=== PATIENT | female | born 1975 | race American Indian/Alaskan Native ===

== ENCOUNTER 2017-03-28 07:46 | Day surgery (SDC) | payer BC ==
--- NOTE | 2017-03-27 21:56 | History and Physical Report ---
History of Present Illness Date of examination: 03/24/17 History of present illness: Patient has been reassessed/reevaluated. H&P has been reviewed. No interval changes. 42 YOBF with a Mirena IUD in place greater than 5 year. IUD string not visible through cervix, In office hysteroscopic removel failed to discomfort and poor visualizatlation. Pateint present reji hysterospic reoval under anesthesia Vital Signs: Patient Profile: 42 Years Old Female Height: 60 inches (152.40 cm) Weight: 315 pounds (143.18 kg) BMI: 61.51 BSA: 2.27 Past History : 1 Term Births: 1 Premature Births: 0 Living Children: 1 Para: 1 Mult. Births: 0 Prev : 0 Prev. attempt? 0 Aborta: 0 Elect. Ab: 0 Spont. 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 of genital herpes: no Partner hx. of genital herpes: no Hx of STD: Trichomonas Other: hpv Current Allergies (reviewed today): * SULFA (Critical) Past Medical History: Diabetes Sleep Apnea Past Surgical History: negative Family History Summary: Other family member - Has No Family History of Ovarvian Cancer - Entered On: 02/2017 Other family member - Has No Family History of Colon Cancer - Entered On: 2016 Other family member - Has Family History of Diabetes - Entered On: 03/24/2017 Other family member - Has Family History Breast Cancer - Entered On: 03/24/2017 Social History: : Patient is single occ etoh, no tobacco no drugs DFACS Smoking History: Patient has never smoked. Risk Factors: Smoked Tobacco Use: Never smoker Smokeless Tobacco Use: Never Passive smoke exposure: no Drug use: no HIV high-risk behavior: no Alcohol use: yes Type: occ Exercise: no Seatbelt use: 100 % Review of Systems General Denies fever, chills, sweats, anorexia, fatigue, weakness, malaise, weight loss and sleep disorder. Denies vaginal discharge, incontinence, dysuria, hematuria, urinary frequency, amenorrhea, menorrhagia, abnormal vaginal bleeding, pelvic pain, genital sores, decreased libido, painful periods, painful sex, urinary urgency, hot flashes, vaginal dryness, vaginal itching and vaginal odor. CV Denies chest pains, palpitations, syncope, dyspnea on exertion, orthopnea, PND and peripheral edema. Resp Denies cough, dyspnea at rest, excessive sputum, hemoptysis, wheezing and pleurisy. GI Denies nausea, vomiting, diarrhea, constipation, change in bowel habits, abdominal pain, melena, hematochezia, jaundice, gas/bloating, indigestion/ heartburn, dysphagia and odynophagia. Breast Denies left breast lump, right breast lump, nipple discharge, bloody discharge from nipple, breast pain, abnormal mammogram and breast enlargement. Psych Denies depression, anxiety, irritability and mood swings. Past History Past Medical History: other (see HPI) Past Surgical History: Other (see HPI) Social history: other (see HPI) Family history: other (see HPI) Medications and Allergies Allergies Allergy/AdvReac Type Severity Reaction Status Date / Time Sulfa (Sulfonamide Allergy Itching Verified 03/18/17 10:10 Antibiotics) Home Medications Medication Instructions Recorded Confirmed Last Taken Type Canagliflozin/Metformin HCl 1 each PO DAILY 03/18/17 03/18/17 Unknown History [Invokamet Xr 50-1,000 mg Tab] Dulaglutide [Trulicity] 1.5 mg SQ 1XW 03/18/17 03/18/17 Unknown History Review of Systems Constitutional: other (see HPI) Exam - Physical Exam Narrative exam: HEENT: normocephalic, no lesions or deformities Neck/Thyroid: supple, thyroid normal Skin no ulcers, xanthomas Chest: respiratory effort normal, clear to auscultation Breasts: skin/areolae normal, no masses, no nipple discharge, no erythema/warmth /tenderness, and axillae normal. 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 No evidence of cystocele or rectocele. Cervix: normal appearance, no lesions, no discharge, string not seen Uterus: unable to palpate due to obesity Adnexae: unable to palpate due to obesity Rectovaginal: exam defered Assessment and Plan - Patient Problems (1) IUD surveillance Current Visit: Yes Status: Acute (2) IUD threads lost Current Visit: Yes Status: Acute Qualifiers: Encounter type: subsequent encounter Qualified Code(s): T83.32XD - Displacement of intrauterine contraceptive device, subsequent encounter Plan to address problem: Hysteroscopic removal. Discussed risk of surgery including infection, bleeding and risk of perforating her uterus. Questions answered. Patient understands and desires to proceed (3) Diabetes Current Visit: Yes Status: Acute Qualifiers: Diabetes mellitus type: type 2 Diabetes mellitus complication status: without complication (4) Sleep apnea Current Visit: Yes Status: Acute (5) BMI 60.0-69.9, adult Current Visit: Yes Status: Acute
[~2017-03-28 07:46] MED LIST: NACL 0.9% IR ONE
[2017-03-28] MEDS ORDERED: NACL 0.9% 1000 ML 1,000 ML IV SCH (09:00)
--- NOTE | 2017-03-28 09:29 | Anesthesia Day of Surgery ---
Anesthesia Day of Surgery - Day of Surgery Patient Examined: Yes Patient H&P Reviewed: Yes Patient is NPO: Yes
--- NOTE | 2017-03-28 09:29 | Anesthesia Consultation ---
Anesthesia Consult and Med Hx Date of service: 03/28/17 - Airway Anesthetic Teeth Evaluation: Good ROM Head & Neck: Adequate Mental/Hyoid Distance: Adequate Mallampati Class: Class II Intubation Access Assessment: Probably Good - Pulmonary Exam CTA: Yes - Cardiac Exam Cardiac Exam: RRR - Pre-Operative Health Status ASA Pre-Surgery Classification: ASA3 Proposed Anesthetic Plan: General - Pulmonary Hx Sleep Apnea: Yes (doesnt use cpap) - Cardiovascular System Hx Hypertension: No - Central Nervous System Hx Psychiatric Problems: No - Endocrine Hx Insulin Dependent Diabetes: Yes - Other Systems Hx Alcohol Use: No (OCCASIONALLY) Hx Substance Use: No Hx Cancer: No Hx Obesity: Yes
[2017-03-28] MEDS ORDERED: PERCOCET 5/325 PO PRN (10:00)
[2017-03-28] MEDS ORDERED: PEPCID PO NR (10:00)
[2017-03-28] MEDS ORDERED: VERSED IV NR (10:00)
[2017-03-28] MEDS ORDERED: ZOFRAN IV PRN (10:00)
[2017-03-28] MEDS ORDERED: MORPHINE IV PRN (10:00)
[2017-03-28] MEDS ORDERED: TORADOL IV PRN (10:00)
[2017-03-28] MEDS ORDERED: XYLOCAINE MPF 2% ONE (10:05)
[2017-03-28] MEDS ORDERED: DIPRIVAN 10 MG/ML IV ONE ×2 (10:05→10:21)
[2017-03-28] MEDS ORDERED: DECADRON ONE (11:14)
[2017-03-28] MEDS ORDERED: ZOFRAN ONE (11:14)
[2017-03-28] MEDS ORDERED: TORADOL ONE (11:14)
--- NOTE | 2017-03-28 11:33 | Operative Report ---
Operative Report Operative Report: Date of procedure: 03/28/2017 Pre-operative diagnosis: Retained IUD Post-operative diagnosis: Same Procedure name(s): Hysteroscopic removal of Mirena IUD Surgeon: Samuel Naqvi MD Process Trainer: [] Anesthesia: General EBL: Minimal Complications: None Findings: Mirena IUD with strings folded into the uterus Specimen(s): Mirena IUD Procedure: Patient was brought to operating room. Where general anesthesia was induced on difficulty. She was placed in the dorsal lithotomy position. Prepped and draped in usual sterile manner. Urinary bladder was emptied with a red rubber catheter. Speculum was placed in the vagina. Tenaculum was placed at 12:00. The cervix was dilated progressively to operative hysteroscope could be placed without any difficulty. The hysteroscope was placed through the cervical os without any complications with the findings noted above. The IUD with the its strings were seen. The strings were grasped with a grasper and poor through her cervical os without difficulty. Instruments are removed. The patient tolerated the procedure well and was awakened in the operating room. Accompanied to the recovery room in good condition
--- NOTE | 2017-03-28 11:38 | Short Stay Summary ---
Short Stay Documentation Date of service: 03/28/17 - History Principal diagnosis: retained placenta H&P: dictated Past Medical History: other (see HPI) Past Surgical History: Other (see HPI) Social history: other (see HPI) - Allergies and Medications Current Medications: Allergies Sulfa (Sulfonamide Antibiotics) Allergy (Verified 03/18/17 10:10) Itching Home Medications Medication Instructions Recorded Confirmed Last Taken Type Canagliflozin/Metformin HCl 1 each PO DAILY 03/18/17 03/28/17 03/27/17 History [Invokamet Xr 50-1,000 mg Tab] Dulaglutide [Trulicity] 1.5 mg SQ 1XW 03/18/17 03/28/17 03/25/17 History Active Medications Famotidine (Pepcid) 20 mg PO PREOP NR Stop: 03/28/17 21:00 Last Admin: 03/28/17 09:56 Dose: 20 mg Sodium Chloride (Nacl 0.9% 1000 Ml) 1,000 mls @ 125 mls/hr IV DIRECT ALTAF Last Admin: 03/28/17 09:15 Dose: 125 mls/hr Ketorolac Tromethamine (Toradol) 30 mg IV ONCE PRN PRN Reason: Pain, Moderate (4-6) Stop: 03/28/17 21:00 Midazolam HCl (Versed) 2 mg IV PREOP NR Stop: 03/28/17 23:59 Last Admin: 03/28/17 09:56 Dose: 2 mg Morphine Sulfate (Morphine) 2 mg IV Q10MIN PRN PRN Reason: Pain, Moderate (4-6) Stop: 03/28/17 16:00 Ondansetron HCl (Zofran) 4 mg IV ONCE PRN PRN Reason: Nausea And Vomiting Stop: 03/28/17 21:00 Oxycodone/Acetaminophen (Percocet 5/325) 1 tab PO ONCE PRN PRN Reason: Pain, Moderate (4-6) Stop: 03/28/17 21:00 - Brief post op/procedure progress note Date of procedure: 03/28/17 (see dictated operative note) - Hospital course Hospital course: Patient was admitted underwent the above him procedure without any complications. Patient will be discharged with follow-up in office in 1-2 weeks for postop check. - Disposition Condition at discharge: Good Disposition: DC-01 TO HOME OR SELFCARE - Discharge Diagnoses (1) IUD surveillance Status: Resolved (2) IUD threads lost Status: Resolved Qualifiers: Encounter type: subsequent encounter Qualified Code(s): T83.32XD - Displacement of intrauterine contraceptive device, subsequent encounter (3) Diabetes Status: Chronic Qualifiers: Diabetes mellitus type: type 2 Diabetes mellitus complication status: without complication (4) Sleep apnea Status: Chronic (5) BMI 60.0-69.9, adult Status: Chronic Short Stay Discharge Plan Activity: advance as tolerated Diet: regular Additional Instructions: Patient called office for fever chills nausea vomiting resolved with medication Follow up with: SWAPNA NINO MD [Primary Care Provider] - 7 Days
--- NOTE | 2017-03-28 11:46 | Post Anesthesia Evaluation ---
- Post Anesthesia Evaluation Patient Participated: Yes Airway Patent: Yes Stable Respiratory Function: Yes Nausea/Vomiting: No Temp > 96.8F: Yes Pain Manageable: Yes Adequeate Hydration: Yes Anesthesia Complications: No Block Receding Appropriately: Not Applicable Patient on Ventilator: No
[2017-03-28] MEDS ORDERED: D50W (25GM) Syringe IV ONE ×2 (12:04→12:05)
[2017-03-28 13:54] VITALS: BP 166/66
== END 2017-03-28 14:12 | disposition home or self-care (01) ==
LOC: OR 07:46
PROVIDERS: ATTEND Obstetrics & Gynecology
DX: T83.32XA Displacement of intrauterine contraceptive device, initial encounter (principal); E11.9 Type 2 diabetes mellitus without complications; E66.01 Morbid (severe) obesity due to excess calories; Z68.44 Body mass index [BMI] 60.0-69.9, adult; Z88.2 Allergy status to sulfonamides; Y83.1 Surgical operation with implant of artificial internal device as the cause of abnormal reaction of the patient, or of later complication, without mention of misadventure at the time of the procedure
CPT/HCPCS: 58562; 81025; 82962; 88300; A4217; J1100; J1885; J2250; J2405; J2704; J7030; 88302